=== PATIENT | female | born 1990 | race Caucasian/White ===

== ENCOUNTER 2023-02-22 05:33 | Inpatient (IN) | payer BC ==
[2023-02-21 10:52] LABS: Hematocrit 34.9 % (34.9-44.5); Hemoglobin 11.4 g/dL (12.0-15.5); Platelet Count 318 10x3/uL (150-450)
[2023-02-21 11:38] LABS: HBSAg Index 0.17 S/CO (0-0.99); Hep B Surf Ag Non-Reactive S/CO (NonReactive); Syphilis Antibody Nonreactive (Nonreactive); Syphilis Antibody Index 0.03 S/CO (<1.00 Non-Reactive)
[2023-02-22 06:34] VITALS: BMI 39.4
[2023-02-22] MEDS ORDERED: hydrALAZINE 20 MG/ML VIAL SLOW IVP PRN ×2 (07:17→11:47)
[2023-02-22] MEDS ORDERED: Methylergonovine 0.2 MG/ML VIAL IM PRN (07:17)
[2023-02-22] MEDS ORDERED: Ondansetron PF 4 MG/2 ML Vial IVP PRN ×2 (07:17→07:29)
[2023-02-22] MEDS ORDERED: Promethazine HCl 25 MG/ML VIAL IM PRN ×2 (07:17→07:29)
[2023-02-22] MEDS ORDERED: Misoprostol 200 MCG TAB PR PRN ×2 (07:17→11:47)
[2023-02-22] MEDS ORDERED: Bicitra 30 ML UDCUP PO PRN (07:17)
[2023-02-22] MEDS ORDERED: Famotidine/PF 20 mg/2ml Vial SLOW IVP PRN (07:17)
[2023-02-22] MEDS ORDERED: CEFAZOLIN 2 GM VIAL ONE (07:28)
[2023-02-22] MEDS ORDERED: Naloxone HCl 0.4 mg/ml Vial IVP PRN ×2 (07:29)
[2023-02-22] MEDS ORDERED: Moisturizing Cream (Eucerin) 113 GM JAR TOP PRN (07:29)
[2023-02-22] MEDS ORDERED: Naloxone HCl 0.4 mg/ml Vial IV PRN (07:29)
[2023-02-22] MEDS ORDERED: Promethazine HCl 25 MG SUPP PR PRN (07:29)
[2023-02-22] MEDS ORDERED: Meperidine HCl/PF 25 MG/ML VIAL SLOW IVP PRN (07:29)
[2023-02-22] MEDS ORDERED: diphenhydrAMINE 50 MG/ML VIAL IVP PRN (07:29)
[2023-02-22] MEDS ORDERED: Fentanyl 50 MCG/1 ML VIAL SLOW IVP PRN (07:29)
[2023-02-22] MEDS ORDERED: Ondansetron HCl/PF 4 MG/2 ML Vial IVP PRN (07:29)
[2023-02-22] MEDS ORDERED: Ketorolac Tromethamine 30 MG/ML VIAL IVP SCH (07:30)
[2023-02-22] MEDS ORDERED: NS w/ Oxytocin 30 units 500 ML IV SCH ×2 (07:30→11:47)
[2023-02-22] MEDS ORDERED: Lactated Ringer's 1,000 ML IV SCH (07:30)
[2023-02-22] MEDS ORDERED: Communication Order-Pharmacy FS SCH (07:30)
[2023-02-22] MEDS ORDERED: CEFAZOLIN 2 GM in Sodium Chloride 0.9% 100 ML IVPB SCH (08:00)
[2023-02-22] MEDS ORDERED: Prenatal Vitamin 1 TAB PO SCH (11:47)
[2023-02-22] MEDS ORDERED: Simethicone Chewable 80 MG TAB PO PRN (11:47)
[2023-02-22] MEDS ORDERED: HYDROcodone/Acetaminophen 5/325 mg Tablet PO PRN (11:47)
[2023-02-22] MEDS ORDERED: Boostrix 0.5 ML (Tdap) VIAL (>/=7 yrs of age) IM ONE (11:47)
[2023-02-22] MEDS: Ketorolac Tromethamine 30 MG/ML VIAL IVP PRN ×2 (17:49→23:53)
[2023-02-23 04:29] LABS: Hematocrit 25.9 % (34.9-44.5); Hemoglobin 8.4 g/dL (12.0-15.5); Mean Corpuscular HGB CONC 32.4 g/dL (32.0-36.0); Mean Corpuscular Hemoglobin 26.3 pg (27.0-33.0); Mean Corpuscular Volume 80.9 fl (81.6-98.3); Mean Platelet Volume 10.8 fl (7.4-10.4); Platelet Count 249 10x3/uL (150-450); White Blood Cell (WBC) Count 14.3 10x3/uL (3.5-10.5)
[2023-02-23] MEDS: Ketorolac Tromethamine 30 MG/ML VIAL IVP PRN (06:17)
[2023-02-23] MEDS ORDERED: Ferrous Gluconate 324 MG TAB PO SCH (08:00)
[2023-02-23] MEDS ORDERED: Ferrous Sulfate 325 MG TAB PO SCH (08:30)
[2023-02-23] MEDS: Prenatal Vitamin 1 TAB PO SCH (08:54)
[2023-02-23] MEDS: Ferrous Sulfate 325 MG TAB PO SCH (08:54)
[2023-02-23] MEDS: HYDROcodone/Acetaminophen 5/325 mg Tablet PO PRN ×2 (08:55→18:08)
[2023-02-23] MEDS: Acetaminophen 325 MG TAB PO SCH ×3 (08:55→21:05)
[2023-02-23] MEDS: Ibuprofen 800 MG TAB PO SCH ×2 (13:31→21:05)
[2023-02-24] MEDS: Acetaminophen 325 MG TAB PO SCH ×2 (03:20→07:46)
[2023-02-24] MEDS: HYDROcodone/Acetaminophen 5/325 mg Tablet PO PRN ×2 (03:23→08:49)
[2023-02-24] MEDS: Ibuprofen 800 MG TAB PO SCH (05:31)
[2023-02-24] MEDS: Ferrous Sulfate 325 MG TAB PO SCH (07:45)
[2023-02-24] MEDS: Prenatal Vitamin 1 TAB PO SCH (07:45)
[2023-02-24 13:18] VITALS: BP 147/79; TEMP 98.7
== END 2023-02-24 11:25 | disposition home or self-care (01) | DRG 787 ==
LOC: CSHLD 05:33 → CSHPP 11:40
PROVIDERS: ADMIT Obstetrics & Gynecology; ATTEND Obstetrics & Gynecology
PROC: 10D00Z1 Extraction of Products of Conception, Low, Open Approach (ICD-10-PCS; principal; 2023-02-22)
PROC: 3E0334Z Introduction of Serum, Toxoid and Vaccine into Peripheral Vein, Percutaneous Approach (ICD-10-PCS; 2023-02-22)
PROC: 3E033VJ Introduction of Other Hormone into Peripheral Vein, Percutaneous Approach (ICD-10-PCS; 2023-02-22)
DX: O24.429 Gestational diabetes mellitus in childbirth, unspecified control (principal); D62 Acute posthemorrhagic anemia; O34.211 Maternal care for low transverse scar from previous cesarean delivery; Z3A.39 39 weeks gestation of pregnancy; Z37.0 Single live birth; O26.893 Other specified pregnancy related conditions, third trimester; Z67.41 Type O blood, Rh negative
CPT/HCPCS: 36415; 51702; 85014; 85018; 85027; 85049; 85461; 86780; 86850; 86900; 86901; 87340; 90384; 96372; J1885